=== PATIENT | male | born 1990 | race Hispanic/Latino ===

== ENCOUNTER 2017-08-22 23:44 | Emergency (ER) | payer SELFPAY ==
[2017-08-23 00:21] LABS: RAPID GROUP A STREP NEGATIVE (NEGATIVE)
[2017-08-23] MEDS ORDERED: DEXAMETHASONE SOD PHOSPHATE 10MG/ML 1ML VIAL ONE (00:44)
[2017-08-23] MEDS ORDERED: IPRATROPIUM/ALBUTEROL SULFATE 3 ML SOLUTION IH ONE (00:53)
== END 2017-08-23 01:44 | disposition home or self-care (01) ==
LOC: EDH 23:44
DX: J20.9 Acute bronchitis, unspecified (principal); R11.0 Nausea; M79.1 Myalgia; Z88.0 Allergy status to penicillin; Z88.1 Allergy status to other antibiotic agents
CPT/HCPCS: 71045; 87804 ×2; 87880; 94640; 96372; 99285; J1100

== ENCOUNTER 2019-03-11 14:31 | Emergency (ER) | payer SELFPAY ==
[2019-03-11] MEDS ORDERED: ASPIRIN 325 MG TABLET ONE (15:59)
[2019-03-11 16:13] LABS: BASOPHILS % (AUTO) 0.4 % (0.0-5.0); EOSINOPHILS % (AUTO) 1.6 % (0.0-8.0); HEMATOCRIT 46.9 % (42-54); LYMPHOCYTES % (AUTO) 20.2 % (21.0-51.0); MEAN CORPUSCULAR HEMOGLOBIN 28.7 pg (27.0-33.0); MEAN CORPUSCULAR HGB CONC 34.1 g/dL (32.0-36.0); MEAN CORPUSCULAR VOLUME 84.1 fL (79-99); MONOCYTES % (AUTO) 8.4 % (3.0-13.0); NEUTROPHILS % (AUTO) 69.4 % (40.0-77.0); NUCLEATED RED BLOOD CELLS 0.1 % (0.0-0.19); PLATELET COUNT (AUTO) 248 K/uL (130-400); RED BLOOD CELL COUNT(AUTO) 5.58 MIL/uL (4.50-6.20); RED CELL DISTRIBUTION WIDTH 13.8 % (11.0-15.5); WHITE BLOOD COUNT (AUTO) 9.8 K/uL (4.8-10.8)
[2019-03-11 16:14] LABS: APPEARANCE,URINE Cloudy (CLEAR); BILIRUBIN,URINE Negative (NEGATIVE); COLOR,URINE Yellow (YELLOW); GLUCOSE, URINE (UA) Negative (NEGATIVE); KETONES,URINE Negative (NEGATIVE); LEUKOCYTE ESTERASE ,URINE Small (NEGATIVE); NITRATE,URINE Negative (NEGATIVE); OCCULT BLOOD,URINE Negative (NEGATIVE); PH,URINE 8.5 (5.0-8.0); PROTEIN,URINE Trace mg/dL (NEGATIVE)
[2019-03-11 16:21] LABS: AMPHET/METH SCREEN,URINE NEGATIVE (NEGATIVE); BARBITURATE SCREEN, URINE NEGATIVE (NEGATIVE); BENZODIAZEPINES SCREEN,URINE NEGATIVE (NEGATIVE); CANNABINOID SCREEN,URINE NEGATIVE (NEGATIVE); COCAINE SCREEN,URINE NEGATIVE (NEGATIVE); OPIATE SCREEN,URINE NEGATIVE (NEGATIVE); PHENCYCLIDINE SCREEN,URINE NEGATIVE (NEGATIVE)
[2019-03-11 16:24] LABS: CREATININE 0.8 mg/dL (0.5-1.5)
[2019-03-11 16:26] LABS: INR 1.04 (0.85-1.15); PARTIAL THROMBOPLASTIN TIME 27.8 SEC (26.3-35.5); PROTHROMBIN TIME 10.9 SEC (9.6-11.6)
[2019-03-11 16:32] LABS: ALBUMIN 4.2 g/dL (3.5-5.0); BILIRUBIN,TOTAL 0.3 mg/dL (0.2-1.0); TOTAL PROTEIN, SERUM 7.9 g/dL (6.0-8.3)
[2019-03-11 16:43] LABS: BACTERIA,URINE Moderate /HPF (None Seen); MUCUS,URINE Few LPF (None Seen); SQUAMOUS EPITHELIAL CELL,UR 0-2 /HPF (0-2)
[2019-03-11] MEDS ORDERED: CEFTRIAXONE SODIUM 500 MG VIAL ONE (16:57)
[2019-03-11] MEDS ORDERED: LIDOCAINE HCL-MPF 1% 2ML VIAL ONE (16:57)
[2019-03-11] MEDS ORDERED: DOXYCYCLINE HYCLATE 100 MG TABLET PO ONE (16:57)
[2019-03-11] MEDS ORDERED: AZITHROMYCIN 250 MG TABLET PO ONE (16:58)
== END 2019-03-11 17:20 | disposition home or self-care (01) ==
LOC: EDH 14:31
DX: N39.0 Urinary tract infection, site not specified (principal); I10 Essential (primary) hypertension; R07.89 Other chest pain; R42 Dizziness and giddiness; Z88.0 Allergy status to penicillin; Z88.1 Allergy status to other antibiotic agents
CPT/HCPCS: 36415; 71045; 80053; 80305; 81001; 82550; 84484; 85025; 85610; 85730; 87088; 87486; 87797; 93005; 96372; 99285; J0696; J3490

== ENCOUNTER 2021-11-14 16:55 | Emergency (ER) | payer OTHER ==
[~2021-11-14] VITALS: Ht 170.2 cm; Wt 88.5 kg
[2021-11-14 17:22] LABS: BASOPHILS % (AUTO) 0.3 % (0.0-5.0); EOSINOPHILS % (AUTO) 0.3 % (0.0-8.0); HEMATOCRIT 50.1 % (42-54); LYMPHOCYTES % (AUTO) 27.5 % (21.0-51.0); MEAN CORPUSCULAR HEMOGLOBIN 27.3 pg (27.0-33.0); MEAN CORPUSCULAR HGB CONC 33.5 g/dL (32.0-36.0); MEAN CORPUSCULAR VOLUME 81.5 fL (79-99); MONOCYTES % (AUTO) 9.5 % (3.0-13.0); NEUTROPHILS % (AUTO) 62.2 % (40.0-77.0); PLATELET COUNT (AUTO) 179 K/uL (130-400); RED BLOOD CELL COUNT(AUTO) 6.15 MIL/uL (4.50-6.20); RED CELL DISTRIBUTION WIDTH 12.8 % (11.0-15.5); WHITE BLOOD COUNT (AUTO) 6.2 K/uL (4.8-10.8)
[2021-11-14] MEDS ORDERED: FAMOTIDINE 20MG VIAL IV ONE (17:30)
[2021-11-14] MEDS ORDERED: DiphenhydrAMINE HCL 50 MG/ML VIAL IV ONE (17:30)
[2021-11-14] MEDS ORDERED: SOLU-MEDROL 125MG VIAL IVP ONE (17:30)
[2021-11-14 17:31] LABS: CREATININE 0.9 mg/dL (0.5-1.5); POTASSIUM 3.9 mmol/L (3.5-5.1)
[2021-11-14 17:38] LABS: ALBUMIN 3.8 g/dL (3.5-5.0); CRP QUANTITATIVE 24.6 mg/L (0.00-9.0); TOTAL PROTEIN, SERUM 7.7 g/dL (6.0-8.3)
[2021-11-14] MEDS ORDERED: 0.9%NACL 1000ML 1,000 ML IV SCH (18:00)
[2021-11-14] MEDS ORDERED: PRED20TA3 PO (18:18)
[2021-11-14] MEDS ORDERED: CETI1SOL17 PO (18:18)
[2021-11-14] MEDS ORDERED: FAMO-136 PO (18:18)
[2021-11-14 18:55] VITALS: BP 106/68
== END 2021-11-14 18:56 | disposition home or self-care (01) ==
LOC: EDH 16:55
DX: L50.0 Allergic urticaria (principal); E87.1 Hypo-osmolality and hyponatremia; Z79.52 Long term (current) use of systemic steroids; Z86.16 Personal history of COVID-19; Z88.0 Allergy status to penicillin
CPT/HCPCS: 99284; 96374; 96375; 96361; 80053; 85025; 86140; 36415; J1200; J3490; J7030; J2930

== ENCOUNTER 2021-11-19 10:02 | Emergency (ER) | payer OTHER ==
[~2021-11-19] VITALS: Ht 170.2 cm; Wt 86.2 kg
[~2021-11-19 10:02] MED LIST: CETI1SOL17 PO; FAMO-136 PO; PRED20TA3 PO
[2021-11-19 10:25] VITALS: BP 99/65
[2021-11-19] MEDS ORDERED: DiphenhydrAMINE HCL 50 MG/ML VIAL IV ONE (11:00)
[2021-11-19] MEDS ORDERED: SOLU-MEDROL 125MG VIAL IVP ONE (11:00)
[2021-11-19] MEDS ORDERED: FAMOTIDINE 20MG VIAL IV ONE (11:00)
[2021-11-19] MEDS ORDERED: FAMO-136 PO (12:16)
[2021-11-19] MEDS ORDERED: PRED20TA3 PO (12:16)
[2021-11-19] MEDS ORDERED: DIPH25 PO (12:16)
== END 2021-11-19 12:26 | disposition home or self-care (01) ==
LOC: EDH 10:02
DX: T78.49XA Other allergy, initial encounter (principal); Z88.0 Allergy status to penicillin; Z86.16 Personal history of COVID-19; Z79.52 Long term (current) use of systemic steroids; X58.XXXA Exposure to other specified factors, initial encounter
CPT/HCPCS: 99284; 96374; 96375; J1200; J3490; J2930